=== PATIENT | female | born 1965 | race Caucasian/White ===

== ENCOUNTER 2021-04-18 17:52 | Inpatient (IN) | payer BC, SELFPAY ==
--- NOTE | ~2021-04-18 | MR_ITS ---
EXAMINATION: MR BRAIN WITHOUT AND WITH CONTRAST CLINICAL INFORMATION: Loss of consciousness. Seizure-like activity. COMPARISON: CT scan of the head 04/18/2021. TECHNIQUE: Multiplanar MR imaging of the brain was performed without and with contrast. A total of 8.5 mL Gadavist was less of this examination. FINDINGS: Dedicated coronal oblique imaging through the temporal lobes reveals symmetric size, signal intensity, and morphological appearance of the hippocampal formations. Postcontrast images reveal no abnormal mass or enhancement within the intracranial compartment. No intracranial mass effect or midline shift. Lateral and third ventricles are normal. No hydrocephalus. Midline structures including the cervicomedullary junction are normal. No acute bone marrow signal changes. There is no acute territorial infarct. No pathological magnetic susceptibility artifact. Intracranial vascular flow voids are grossly maintained. There is no mastoid middle ear effusion. Trivial mucosal thickening within ethmoid air cells. Globes and orbits are symmetric. MR/MR head/brain wo/w con IMPRESSION: Unremarkable brain MRI. No evidence of acute territorial infarct or hemorrhage. No abnormal intracranial mass or enhancement.
--- NOTE | ~2021-04-18 | XR_ITS ---
EXAMINATION: XR CHEST CLINICAL INFORMATION: Dizziness, syncope COMPARISON: None TECHNIQUE: Frontal view of the chest was obtained. FINDINGS: No significant abnormality is noted involving the heart, lungs, mediastinum, bony thorax or soft tissues. XR/XR chest 1V IMPRESSION: Unremarkable examination.
--- NOTE | ~2021-04-18 | CT_ITS ---
EXAMINATION: CT HEAD WITHOUT CONTRAST CLINICAL INFORMATION: Seizure and headache COMPARISON: None TECHNIQUE: Contiguous axial imaging was performed from the skull base to vertex without intravenous administration of contrast. This CT examination was performed using dose optimization techniques as appropriate, variously including the following: *Automated exposure control *Adjustment of mA and/or kV according to patient size (this includes techniques or standardized protocols for targeted exams where dose is matched to indication/reason for exam; i.e. extremities or head) *Use of iterative reconstruction technique DLP: 616 mGy-cm FINDINGS: There is no evidence of acute intracranial hemorrhage or territorial infarction. No abnormal mass effect or midline shift is seen. [place] to white matter differentiation is well preserved. No extra-axial fluid collections are identified. The ventricles are normal in size. There is no abnormal attenuation within the brain parenchyma. The osseous structures and soft tissues are normal. The mastoid air cells and visualized portions of the paranasal sinuses are well aerated. There is cerumen in the bilateral external auditory canals. CT/CT head/brain wo con IMPRESSION: No acute intracranial pathology.
[2021-04-18 18:41] VITALS: BP 124/85; PULSE 89; RESP 18; TEMP 36.9; O2SAT 98; BMI 32.1
--- NOTE | 2021-04-18 18:48 | ECG_ITS ---
Test Reason : chest pain Blood Pressure : / mmHG Vent. Rate : 076 BPM Atrial Rate : 076 BPM P-R Int : 174 ms QRS Dur : 084 ms QT Int : 386 ms P-R-T Axes : 039 -25 022 degrees QTc Int : 434 ms Normal sinus rhythm Left axis deviation Otherwise normal ECG No previous ECGs available Referred By: Generic ED Physician Electronically Signed By:JERRY COLON MD
--- NOTE | 2021-04-18 19:01 | ED_ITS ---
HPI - Syncope General Chief Complaint: Dizziness Stated Complaint: dizziness Time Seen by Provider: 04/18/21 19:00 Source: patient and family Mode of arrival: ambulatory Limitations: no limitations History of Present Illness HPI narrative: 55-year-old female with history of HTN, long time active smoker who presents to the ER for evaluation of recurrent dizziness and passing out. She reports yesterday she was at work when she all of the sudden felt hot, lightheaded, dizzy and started seeing spots. She felt like she was going to pass out. She sat down and her coworkers report she lost consciousness, both of her arms were shaking and she was incontinent of urine. She was unconscious for about 2 minutes per witnesses. When she came to she was unsure how long she was passed out for. She had headache and fatigue afterward with extreme nausea. EMS arrived and patient declined transport to the ER becuase she was slowly starting to feel better. She woke up this morning and still felt fatigued with a headache. She also reports a similar episode back in October - she reports being on an airplane taxing to the gate when she had acute onset of dizziness, lightheadedness, and feeling hot. She saw spots and passed out. She was incontinent of urine and diaphoretic. Unknown if she had shaking or convulsions at that time. She vomited when she woke up. She never saw her PCP or any doctor for evaluation after this episode. MD complaint: loss of consciousness and felt faint Onset (ago): day(s) (1) Duration of episode: 2 -: minutes(s) Description of event: post-event confusion, focal shaking and incontinence Prodromal symptoms: vision changes, lightheaded, heart racing, diaphoresis and nausea/vomiting Witnessed: Yes - by Bystander Context: at rest Injuries sustained associated with event: none Current symptoms: headache History: previous syncopal episode Treatments prior to arrival: none Related Data Allergies Allergy/AdvReac Type Severity Reaction Status Date / Time No Known Allergies Allergy Verified 04/18/21 18:47 Review of Systems Review of Systems: Constitutional: No Fever, No Chills ENT/Mouth: No sore throat, No Rhinorrhea, No Swallowing Difficulty Eyes: No Eye Pain, No Swelling, No Redness Cardiovascular: No Chest Pain, No SOB, No Orthopnea, No Edema Respiratory: + Cough, No Sputum, No Wheezing, No dyspnea Gastrointestinal: +Nausea, No Vomiting, No Diarrhea, No abdominal Pain Genitourinary: No Dysuria, No Urinary Frequency, No Hematuria Musculoskeletal: No joint pain, No Myalgias Skin: No Skin Lesions, No rash Neuro: No Weakness, + Numbness (transient right arm numbness yesterday, now resolved), + Dizziness, + Headache Psych: No Anxiety/Panic, No Depression Heme/Lymph: No Bruising, No Lymphadenopathy PMFSH Past Medical History Medical History (Updated 04/18/21 @ 20:33 by IVETTE Kessler) COPD (chronic obstructive pulmonary disease) Social History Social History Advance Directives: No Advance Directives Information Provided: Yes Patient : No Physical Exam Vital Signs: Vital Signs: Last Vital Signs Temp 98.5 F 04/18/21 18:41 Pulse 82 04/18/21 19:20 Resp 18 04/18/21 18:41 BP 119/85 04/18/21 19:20 Pulse Ox 98 04/18/21 18:41 Body Mass Index 32.1 Appearance: Alert. Oriented X3. No acute distress. Eyes: Pupils equal, round and reactive to light. ENT: Pharynx normal. Neck: Normal inspection. Neck supple. CVS: Normal heart rate and rhythm. Pulses normal. Respiratory: No respiratory distress. Breath sounds normal. Abdomen: Soft and nontender. +BS x4 Skin: Skin warm and dry. Normal skin color. Normal skin turgor. No rashes. Extremities: No lower extremity edema. Neuro: Oriented X 3. No motor deficit. No sensory deficit. Nonfocal. Ambulatory Course Course Course Narrative: 55 y/o female presenting with c/o dizziness and syncopal episode that happened yesterday with what sounds like new onset seizure activity. She had arm shaking and urinary incontinence with a similar episode 5 months ago. No history of seizure disorder. Denies ETOH or drug use. Will get labs, Utox, ETOH level and CT head for further evaluation. Reevaluation(s) Reevaluation #1: Labs and imaging are unremarkable. Will plan to admit for probable new onset seizures. Will give a dose of keppra now until she can be seen by Neurology for further evaluation. Patient agrees with plan. MDM - Syncope Medical Records Attestation: I reviewed the patient's medical records. Lab Data Attestation: I reviewed the patient's lab results. Result diagrams: 04/18/21 19:09 04/18/21 19:09 Labs: Lab Results 04/18/21 04/18/21 04/18/21 Range/Units 19:09 19:09 19:09 WBC 10.3 (4.8-10.8) X10*3/uL RBC 4.90 (4.20-5.50) X10*6/uL Hgb 14.7 (12.0-16.0) g/dl Hct 42.5 (37-47) % MCV 86.7 (80-98) fL MCH 30.0 (27.0-33.0) pg MCHC 34.6 (31.0-35.0) g/dl RDW 13.6 (11.0-16.0) % Plt Count 295 (160-400) X10*3/uL MPV 9.8 (9.4-12.3) fL Immature Gran % (Auto) 0.3 (0.0-0.4) % Neut % (Auto) 56.3 (45-73) % Lymph % (Auto) 32.6 (20-40) % [place] % (Auto) 6.6 (2-11) % Eos % (Auto) 3.1 (0-4) % Baso % (Auto) 1.1 (0-2) % Lymph # (Auto) 3.4 (1.2-4.9) X10*3/uL [place] # (Auto) 0.7 (0.1-1.2) X10*3/uL Eos # (Auto) 0.3 (0.0-0.4) X10*3/uL Baso # (Auto) 0.1 (0.0-0.2) X10*3/uL Abs Immat Gran (auto) 0.03 (0.00-0.03) X10*3/uL Absolute Neuts (auto) 5.8 (2.0-8.3) X10*3/uL Absolute Nucleated RBC 0.000 (0.0-0.012) X10*3/uL Nucleated RBC % (auto) 0.0 (0.0-0.2) /100WBC D-Dimer NG/ML Sodium 141 (135-145) mmol/L Potassium 4.3 (3.3-5.1) mmol/L Chloride 108 (96-108) mmol/L Carbon Dioxide 23 (22-29) mmol/L Anion Gap 14 (12-20) BUN 16 (9-16) mg/dL Creatinine 0.69 (0.5-1.4) mg/dL Estim Creat Clear Calc 95.6 Estimated GFR > 60 Random Glucose 93 (60-115) mg/dL Calcium 9.7 (8.4-10.2) mg/dL Troponin I High Sens < 3.5 (<3.5-17.0) ng/L Urine Color Urine Appearance Urine pH (5.0-8.0) Ur Specific [place] (1.005-1.025) Urine Protein (NEG-TRACE) MG/DL Urine Glucose (UA) (NEG) MG/DL Urine Ketones (NEG) MG/DL Urine Blood (NEG) Urine Nitrite (NEG) Ur Leukocyte Esterase (NEG) COVID-19 (TARIQ) (Negative) COVID-19 Clin Com 04/18/21 04/18/21 04/18/21 Range/Units 19:09 19:09 19:09 WBC (4.8-10.8) X10*3/uL RBC (4.20-5.50) X10*6/uL Hgb (12.0-16.0) g/dl Hct (37-47) % MCV (80-98) fL MCH (27.0-33.0) pg MCHC (31.0-35.0) g/dl RDW (11.0-16.0) % Plt Count (160-400) X10*3/uL MPV (9.4-12.3) fL Immature Gran % (Auto) (0.0-0.4) % Neut % (Auto) (45-73) % Lymph % (Auto) (20-40) % [place] % (Auto) (2-11) % Eos % (Auto) (0-4) % Baso % (Auto) (0-2) % Lymph # (Auto) (1.2-4.9) X10*3/uL [place] # (Auto) (0.1-1.2) X10*3/uL Eos # (Auto) (0.0-0.4) X10*3/uL Baso # (Auto) (0.0-0.2) X10*3/uL Abs Immat Gran (auto) (0.00-0.03) X10*3/uL Absolute Neuts (auto) (2.0-8.3) X10*3/uL Absolute Nucleated RBC (0.0-0.012) X10*3/uL Nucleated RBC % (auto) (0.0-0.2) /100WBC D-Dimer < 200 NG/ML Sodium (135-145) mmol/L Potassium (3.3-5.1) mmol/L Chloride (96-108) mmol/L Carbon Dioxide (22-29) mmol/L Anion Gap (12-20) BUN (9-16) mg/dL Creatinine (0.5-1.4) mg/dL Estim Creat Clear Calc Estimated GFR Random Glucose (60-115) mg/dL Calcium (8.4-10.2) mg/dL Troponin I High Sens (<3.5-17.0) ng/L Urine Color STRAW Urine Appearance CLEAR Urine pH 6.5 (5.0-8.0) Ur Specific [place] <= 1.005 (1.005-1.025) Urine Protein NEG (NEG-TRACE) MG/DL Urine Glucose (UA) NEG (NEG) MG/DL Urine Ketones NEG (NEG) MG/DL Urine Blood NEG (NEG) Urine Nitrite NEG (NEG) Ur Leukocyte Esterase NEG (NEG) COVID-19 (TARIQ) Negative (Negative) COVID-19 Clin Com See Note ECG Data Attestation: I personally reviewed and interpreted this ECG as follows: ECG interpretation date: 04/18/21 Prior ECG tracings: available for review Interpretation: Normal sinus rhythm, heart rate 76 beats per minute, MT interval normal 174 MS, T-wave inversions in lead 3, V1. No ST segment elevations or depressions. Discharge Plan Discharge Clinical Impression: New onset seizure Patient Disposition: Admitted As Inpatient
[2021-04-18 19:16] LABS: MANUAL DIFF FLAG NO
[2021-04-18 19:18] VITALS: BP 112/73; PULSE 67
[2021-04-18 19:18] LABS: Basophils Absolute Auto 0.1 X10*3/uL (0.0-0.2); Basophils Percent Auto 1.1 % (0-2); Eosinophils Absolute Auto 0.3 X10*3/uL (0.0-0.4); Eosinophils Percent Auto 3.1 % (0-4); Hematocrit 42.5 % (37-47); Hemoglobin 14.7 g/dl (12.0-16.0); Imm Gran Abs Auto 0.03 X10*3/uL (0.00-0.03); Imm Gran Pct Auto 0.3 % (0.0-0.4); Lymphocytes Absolute Auto 3.4 X10*3/uL (1.2-4.9); Lymphocytes Percent Auto 32.6 % (20-40); Mean Corpuscular HGB Conc 34.6 g/dl (31.0-35.0); Mean Corpuscular Volume 86.7 fL (80-98); Mean Platelet Volume 9.8 fL (9.4-12.3); Monocytes Absolute Auto 0.7 X10*3/uL (0.1-1.2); Monocytes Percent Auto 6.6 % (2-11); Neutrophils Absolute Auto 5.8 X10*3/uL (2.0-8.3); Neutrophils Percent Auto 56.3 % (45-73); Platelet Count 295 X10*3/uL (160-400); Red Cell Distribution Width 13.6 % (11.0-16.0); White Blood Count 10.3 X10*3/uL (4.8-10.8)
[2021-04-18 19:19] VITALS: BP 116/80; PULSE 80
[2021-04-18 19:19] LABS: Appearance Urine CLEAR; Color Urine STRAW; Glucose Urine UA NEG (NEG); Leukocyte Esterase Urine NEG (NEG); Nitrite Urine NEG (NEG); PH 6.5 (5.0-8.0); Specific Gravity - Urine <= 1.005 (1.005-1.025); Urine Blood NEG (NEG); Urine Ketones NEG (NEG); Urine Protein NEG (NEG-TRACE)
[2021-04-18 19:20] VITALS: BP 119/85; PULSE 82
[2021-04-18 19:30] LABS: Anion Gap 14 (12-20); Blood Urea Nitrogen 16 mg/dL (9-16); Calcium 9.7 mg/dL (8.4-10.2); Carbon Dioxide 23 mmol/L (22-29); Chloride 108 mmol/L (96-108); Creatinine Clr Calc Pharmacy 95.6; Estimated Glomerular Filt Rate > 60; Glucose Random 93 mg/dL (60-115); Potassium 4.3 mmol/L (3.3-5.1); Sodium 141 mmol/L (135-145)
[2021-04-18 19:32] LABS: D Dimer < 200 NG/ML
[2021-04-18 19:34] LABS: COVID-19 Test Negative (Negative)
[2021-04-18 19:35] LABS: Troponin-I High Sensitivity < 3.5 ng/L (<3.5-17.0)
[2021-04-18] MEDS: levETIRAcetam in NaCl (iso-os) 1,000 MG/100 ML PIGGYBACK 400 MG IV (20:44)
[2021-04-18] MEDS: Nicotine 21 MG PATCH.TD24 TRANSDERMA (20:46)
--- NOTE | 2021-04-18 20:56 | PHA.MEDREC ---
Pharmacy Consult ? Medication Reconciliation Pharmacy has completed the medication reconciliation. I spoke to the patient who states she takes amlodipine but didn't know the dose. She also states she takes several vitamins that she couldn't tell me the dosage on. She states she takes Zinc, Vitamin C, Vitamin D3, B complex, and Magnesium. I was not able to confirm any of the doses because she didn't have any external pharmacy fill history. Rossana Sainz, PharmD [phone]
[2021-04-18 21:44] VITALS: BP 113/82; PULSE 74; RESP 20; TEMP 36.6; O2SAT 96
--- NOTE | 2021-04-18 23:11 | PM.IMHP ---
History of Present Illness Date of Service: 04/18/21 Chief Complaint: LOC 55-year-old female with past medical history of COPD, hypertension and GERD who presents to the hospital with complaints of syncopal episode. Patient reports that back in October she had an episode where she was traveling, on exiting the plane, patient felt hot, sweaty, clammy, and felt like she was going to pass out, she had nausea vomited, loss consciousness and had loss of bladder control. 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 Her coworkers noticed her has shaking as well as her head moving in seizure-like activity. Patient spontaneously recovered, she reports that she did not feel confused although she did not have any recollection of the loss of consciousness and felt that she did not even pass out. She spontaneously recovered and therefore did not seek any medical attention. She woke up this morning feeling dizzy, weak and therefore decided to come to the hospital for further evaluation. She denies experiencing any chest pain, palpitations, no shortness of breath, no change in vision, no abdominal pain nausea or vomiting, diarrhea constipation, no urinary symptoms and no lower extremity edema. Patient reports history of seizure in mother Her orthostatic vital signs negative negative Vitals on within Normal range, labs unremarkable Head CT negative, chest x-ray negative Review of Systems Review of Systems: Yes all other systems are reviewed and are negative [facility] Medical History (Updated 04/19/21 @ 06:14 by Josselin Johnson MD) COPD (chronic obstructive pulmonary disease) GERD (gastroesophageal reflux disease) Hypertension Pertinent family history: Seizure in mother Surgical History (Updated 04/19/21 @ 06:14 by Josselin Johnson MD) No pertinent past surgical history Social History Household Members: None Housing: House Do you presently have visiting nurse or other home services: No Patient Tobacco Use Status: Current everyday Tobacco user Tobacco use type: Cigarette Smoked in Last 30 Days: Yes Patient Interested in Nicotine Replacement: Yes Second Hand Smoke Exposure: No Use of substances other than those prescribed or required for medical reasons: No Have you been hit, kicked, punched, or otherwise hurt by someone within the past year? If so, by whom?: No Do you feel safe in your current relationship?: No Is there a partner from a previous relationship who is making you feel unsafe now?: No Are you made to feel afraid or neglected: No Advance Directives: No Advance Directives Information Provided: Yes Do you have thoughts of harming others: None Do you have a plan to hurt others: No Plan Recently lost weight without trying: No Eating poorly because of decreased appetite: No Nutrition Risks: No Nutritional Risk Patient : No : No Poor oral hygiene: No Meds Allergies Allergy/AdvReac Type Severity Reaction Status Date / Time No Known Allergies Allergy Verified 04/18/21 18:47 Active Medications: Current Medications Pharmacy Consult (Consult Rx Perform Med Rec) 1 each MISCELLANE ONCE PRN PRN Reason: Consult order Home Medications Medication Instructions Recorded Confirmed Last Taken Type albuterol sulfate 90 mcg/actuation 2 puff INHALATION Q4H PRN 04/18/21 04/18/21 Unknown History aerosol inhaler amlodipine 5 mg tablet mg PO DAILY 04/18/21 Unknown History ascorbic acid (vitamin C) 2,000 mg 2,000 mg PO DAILY 04/18/21 04/18/21 Unknown History tablet,extended release cholecalciferol (vitamin D3) 50 50 mcg PO DAILY 04/18/21 04/18/21 Unknown History mcg (2,000 unit) capsule (Vitamin D3) magnesium 250 mg tablet 250 mg PO DAILY 04/18/21 04/18/21 Unknown History pantoprazole 40 mg tablet,delayed 1 tab PO DAILY 04/18/21 04/18/21 Unknown History release vitamin B complex 1 tab PO DAILY 04/18/21 04/18/21 Unknown History zinc 100 mg tablet 220 mg PO DAILY 04/18/21 04/18/21 Unknown History Physical Exam Vital Signs and Narrative: Vital Signs: Last Vital Signs Temp 97.9 F 04/18/21 21:44 Pulse 74 04/18/21 21:44 Resp 20 04/18/21 21:44 BP 113/82 04/18/21 21:44 Pulse Ox 96 04/18/21 21:44 Body Mass Index 32.1 Const: General: cooperative and no acute distress Orientation/consciousness: patient oriented x3 Eyes: General: appearance normal, both eyes and all related structures Pupils: Equal, round and reactive pupils present Resp: Effort & Inspection: normal respiratory effort and able to speak in complete sentences Auscultation: clear to auscultation bilaterally Cardio: Rate: regular rate Rhythm: regular rhythm GI: Palpation (GI): Soft to palpation Auscultation: normal bowel sounds Skin: General skin exam: no rashes or lesions noted Neuro: General: patient oriented x3 Cranial nerves: Yes Equal, round and reactive pupils present Cognition (Neuro): normal cognition Extrem: General: Yes normal to inspection and Yes no pedal edema Results Labs CBC and Chem 7: 04/18/21 19:09 04/18/21 19:09 Labs: Laboratory Results - last 24 hr 04/18/21 04/18/21 04/18/21 19:09 19:09 19:09 MCV 86.7 MCH 30.0 MCHC 34.6 RDW 13.6 Plt Count 295 MPV 9.8 Immature Gran % (Auto) 0.3 Neut % (Auto) 56.3 Lymph % (Auto) 32.6 [place] % (Auto) 6.6 Eos % (Auto) 3.1 Baso % (Auto) 1.1 Lymph # (Auto) 3.4 [place] # (Auto) 0.7 Eos # (Auto) 0.3 Baso # (Auto) 0.1 Abs Immat Gran (auto) 0.03 Absolute Neuts (auto) 5.8 Absolute Nucleated RBC 0.000 Nucleated RBC % (auto) 0.0 D-Dimer Anion Gap 14 Estim Creat Clear Calc 95.6 Estimated GFR > 60 Random Glucose 93 Calcium 9.7 Troponin I High Sens < 3.5 Urine Color Urine Appearance Urine pH Ur Specific [place] Urine Protein Urine Glucose (UA) Urine Ketones Urine Blood Urine Nitrite Ur Leukocyte Esterase COVID-19 (TARIQ) COVID-19 Clin Com 04/18/21 04/18/21 04/18/21 19:09 19:09 19:09 MCV MCH MCHC RDW Plt Count MPV Immature Gran % (Auto) Neut % (Auto) Lymph % (Auto) [place] % (Auto) Eos % (Auto) Baso % (Auto) Lymph # (Auto) [place] # (Auto) Eos # (Auto) Baso # (Auto) Abs Immat Gran (auto) Absolute Neuts (auto) Absolute Nucleated RBC Nucleated RBC % (auto) D-Dimer < 200 Anion Gap Estim Creat Clear Calc Estimated GFR Random Glucose Calcium Troponin I High Sens Urine Color STRAW Urine Appearance CLEAR Urine pH 6.5 Ur Specific [place] <= 1.005 Urine Protein NEG Urine Glucose (UA) NEG Urine Ketones NEG Urine Blood NEG Urine Nitrite NEG Ur Leukocyte Esterase NEG COVID-19 (TARIQ) Negative COVID-19 Clin Com See Note Imaging Radiologist's Impressions: Impressions Chest X-Ray 04/18/21 18:48 IMPRESSION: Unremarkable examination. Head CT 04/18/21 19:37 IMPRESSION: No acute intracranial pathology. Assessment and Plan (1) Loss of consciousness: Status: Acute 55-year-old female with past medical history of COPD and hypertension who presents to the hospital with complaints of loss of consciousness concerning for seizure # loss of consciousness - seizure versus TIA versus vasovagal syncope - patient has evidence of all 3 - less likely to be cardiogenic as she has pre draw most symptoms - at this time will obtain MRI, EEG, neurology consult - admit to telemetry # hypertension - stable - hold amlodipine as patient's blood pressure on the lower end # COPD - controlled - continue home inhaler # history of GERD - continue PPI DVT prophylaxis: Lovenox Quality Stroke Does the patient have a stroke diagnosis?: No VTE Prior VTE?: No VTE Risk Level:: Medical - moderate - high VTE Device Contraindication: Treatment Not Indicated VTE Drug Contraindication: N/A - Med Ordered
--- NOTE | 2021-04-19 00:22 | PC.NURSE ---
nurse to nurse report given to Ayala PAYNE
[2021-04-19 00:46] VITALS: BP 105/70; PULSE 70; RESP 18; TEMP 36.3; O2SAT 95
[2021-04-19] MEDS: 0.9 % Sodium Chloride Flush 3 ML SYRINGE IVFLUSH ×2 (01:15→12:14)
[2021-04-19 02:31] VITALS: BMI 32.1
[2021-04-19 04:00] VITALS: BP 105/59; RESP 18; TEMP 36.3; O2SAT 99
[2021-04-19] MEDS: Omeprazole 20 MG CAPSULE.DR PO (06:30)
[2021-04-19 07:02] LABS: MANUAL DIFF FLAG NO
[2021-04-19 07:13] VITALS: BP 105/58; PULSE 68; RESP 18; TEMP 36.6; O2SAT 96
[2021-04-19 07:22] LABS: Anion Gap 11 (12-20); Blood Urea Nitrogen 16 mg/dL (9-16); Calcium 9.4 mg/dL (8.4-10.2); Carbon Dioxide 24 mmol/L (22-29); Chloride 106 mmol/L (96-108); Creatinine Clr Calc Pharmacy 95.6; Estimated Glomerular Filt Rate > 60; Glucose Random 100 mg/dL (60-115); Potassium 4.4 mmol/L (3.3-5.1); Sodium 137 mmol/L (135-145)
[2021-04-19 07:31] LABS: Basophils Absolute Auto 0.1 X10*3/uL (0.0-0.2); Basophils Percent Auto 0.8 % (0-2); Eosinophils Absolute Auto 0.3 X10*3/uL (0.0-0.4); Eosinophils Percent Auto 3.6 % (0-4); Hematocrit 41.8 % (37-47); Imm Gran Abs Auto 0.03 X10*3/uL (0.00-0.03); Imm Gran Pct Auto 0.3 % (0.0-0.4); Lymphocytes Absolute Auto 2.7 X10*3/uL (1.2-4.9); Lymphocytes Percent Auto 27.8 % (20-40); Mean Corpuscular HGB Conc 33.5 g/dl (31.0-35.0); Mean Corpuscular Hemoglobin 29.2 pg (27.0-33.0); Mean Corpuscular Volume 87.3 fL (80-98); Mean Platelet Volume 10.1 fL (9.4-12.3); Monocytes Absolute Auto 0.7 X10*3/uL (0.1-1.2); Neutrophils Absolute Auto 5.8 X10*3/uL (2.0-8.3); Neutrophils Percent Auto 60.5 % (45-73); Platelet Count 267 X10*3/uL (160-400); Red Blood Count 4.79 X10*6/uL (4.20-5.50); Red Cell Distribution Width 13.7 % (11.0-16.0); White Blood Count 9.5 X10*3/uL (4.8-10.8)
--- NOTE | 2021-04-19 11:46 | MHC.CM.PN ---
CM ATTEMPTED TO SEE PT WHO WAS OOR CM TO REVISIT
[2021-04-19] MEDS: Enoxaparin Sodium 40 MG/0.4 ML SYRINGE SUBCUT (12:15)
--- NOTE | 2021-04-19 12:46 | P.DS_ITS ---
DS: Providers Provider Date of Service: 04/19/21 Date of admission: 04/18/21 23:08 Primary care physician: Jose Maria Mederos Consults: 04/18/21 23:11 Consult to Neurology Routine Consulting Provider: [facility] Reason for consultation: LOC, seizure vs stroke Has provider been notified: No DS: Diagnosis Discharge Diagnosis (1) Loss of consciousness: Status: Acute (2) New onset seizure: Status: Acute DS: Summary Hospital Course Hospital Course: Chief Complaint: LOC 55-year-old female with past medical history of COPD, hypertension and GERD who presents to the hospital with complaints of syncopal episode.? Patient reports that back in October she had an episode where she was traveling, on exiting the plane, patient felt hot, sweaty, clammy, and felt like she was going to pass out, she had nausea vomited, loss consciousness and had loss of bladder control.? 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 Her coworkers noticed her has shaking as well as her head moving in seizure-like activity.? Patient spontaneously recovered, she reports that she did not feel confused although she did not have any recollection of the loss of consciousness and felt that she did not even pass out.? She spontaneously recovered and therefore did not seek any medical attention. She woke up this morning feeling dizzy, weak and therefore decided to come to the hospital for further evaluation. She denies experiencing any chest pain, palpitations, no shortness of breath, no change in vision, no abdominal pain nausea or vomiting, diarrhea constipation, no urinary symptoms and no lower extremity edema. Patient reports history of seizure in mother Her orthostatic vital signs negative negative Hospital course: Patient was observed overnight and did not experience any further episode of seizure, she descriabed another episode earlier this year which that was similar to this event. She was evaluated by Dr. Gavin from neurology and recommends Outpatient EEG, 24 hour ambulatory EEG, 7 day cardiac cath rn, outpatient echocardiogram and Cardiology consultation--these will be arrange on outaptient basis and the importance of not driving was communicated directectly with her by myself and with nursing and she voiced understanding. Time Spent with Patient Time attestation: Total time spent providing and/or coordinating discharge services: Discharge coordination time: Greater than 30 minutes Quality: Stroke Does the patient have a stroke diagnosis?: No Physical Exam Vital Signs: Vital Signs: Last Vital Signs Temp 98 F 04/19/21 07:13 Pulse 68 04/19/21 07:13 Resp 18 04/19/21 07:13 BP 105/58 L 04/19/21 07:13 Pulse Ox 96 04/19/21 07:13 Body Mass Index 32.1 Constitutional: Alert, in no distress, overweight. Mental Status: Oriented to person, place and time. Eyes: Pupils are equal, round and reactive to light. Ear, Nose and Throat: Oropharynx clear, mucous membranes moist. Respiratory: Clear to auscultation. No wheezing, rales or rhonchi. Cardiovascular: S1 S2 regular. No murmurs, rubs or gallops. Gastrointestinal: Abdomen soft, non-tender, non-distended. Normal bowel sounds.? Neurologic: Cranial nerves II-XII grossly intact. No focal neurological deficits. Moves all extremities spontaneously.? Skin: No rashes or lesions.? Musculoskeletal: No cyanosis or clubbing. Psychiatric: Normal mood and affect? DS: Data Data Completed and Pending Labs on day of discharge: Laboratory Results - last 24 hr 04/18/21 04/18/21 04/18/21 19:09 19:09 19:09 WBC 10.3 RBC 4.90 Hgb 14.7 Hct 42.5 MCV 86.7 MCH 30.0 MCHC 34.6 RDW 13.6 Plt Count 295 MPV 9.8 Immature Gran % (Auto) 0.3 Neut % (Auto) 56.3 Lymph % (Auto) 32.6 Kidder % (Auto) 6.6 Eos % (Auto) 3.1 Baso % (Auto) 1.1 Lymph # (Auto) 3.4 Kidder # (Auto) 0.7 Eos # (Auto) 0.3 Baso # (Auto) 0.1 Abs Immat Gran (auto) 0.03 Absolute Neuts (auto) 5.8 Absolute Nucleated RBC 0.000 Nucleated RBC % (auto) 0.0 D-Dimer Sodium 141 Potassium 4.3 Chloride 108 Carbon Dioxide 23 Anion Gap 14 BUN 16 Creatinine 0.69 Estim Creat Clear Calc 95.6 Estimated GFR > 60 Random Glucose 93 Calcium 9.7 Troponin I High Sens < 3.5 Urine Color Urine Appearance Urine pH Ur Specific [place] Urine Protein Urine Glucose (UA) Urine Ketones Urine Blood Urine Nitrite Ur Leukocyte Esterase COVID-19 (TARIQ) COVID-19 Clin Com 04/18/21 04/18/21 04/18/21 19:09 19:09 19:09 WBC RBC Hgb Hct MCV MCH MCHC RDW Plt Count MPV Immature Gran % (Auto) Neut % (Auto) Lymph % (Auto) Kidder % (Auto) Eos % (Auto) Baso % (Auto) Lymph # (Auto) Kidder # (Auto) Eos # (Auto) Baso # (Auto) Abs Immat Gran (auto) Absolute Neuts (auto) Absolute Nucleated RBC Nucleated RBC % (auto) D-Dimer < 200 Sodium Potassium Chloride Carbon Dioxide Anion Gap BUN Creatinine Estim Creat Clear Calc Estimated GFR Random Glucose Calcium Troponin I High Sens Urine Color STRAW Urine Appearance CLEAR Urine pH 6.5 Ur Specific [place] <= 1.005 Urine Protein NEG Urine Glucose (UA) NEG Urine Ketones NEG Urine Blood NEG Urine Nitrite NEG Ur Leukocyte Esterase NEG COVID-19 (TARIQ) Negative COVID-19 Clin Com See Note 04/19/21 04/19/21 06:28 06:28 WBC 9.5 RBC 4.79 Hgb 14.0 Hct 41.8 MCV 87.3 MCH 29.2 MCHC 33.5 RDW 13.7 Plt Count 267 MPV 10.1 Immature Gran % (Auto) 0.3 Neut % (Auto) 60.5 Lymph % (Auto) 27.8 Kidder % (Auto) 7.0 Eos % (Auto) 3.6 Baso % (Auto) 0.8 Lymph # (Auto) 2.7 Kidder # (Auto) 0.7 Eos # (Auto) 0.3 Baso # (Auto) 0.1 Abs Immat Gran (auto) 0.03 Absolute Neuts (auto) 5.8 Absolute Nucleated RBC 0.000 Nucleated RBC % (auto) 0.0 D-Dimer Sodium 137 Potassium 4.4 Chloride 106 Carbon Dioxide 24 Anion Gap 11 L BUN 16 Creatinine 0.69 Estim Creat Clear Calc 95.6 Estimated GFR > 60 Random Glucose 100 Calcium 9.4 Troponin I High Sens Urine Color Urine Appearance Urine pH Ur Specific [place] Urine Protein Urine Glucose (UA) Urine Ketones Urine Blood Urine Nitrite Ur Leukocyte Esterase COVID-19 (TARIQ) COVID-19 Clin Com Discharge Plan Discharge Anticipated Discharge Date/Time: 04/19/21 16:44 Patient Disposition: Home, Self-Care Discharge Diagnosis: Seizure Referrals: Jose Maria Mederos [Primary Care Provider] - 1 Week Lucie Butterfield MD [Physician] - 2 Weeks Discharge Medications: Continued zinc 100 mg Tablet 220 mg PO DAILY RF: 0 vitamin B complex Tablet Extended Release 1 tab PO DAILY RF: 0 ascorbic acid (vitamin C) 2,000 mg Tablet Extended Release 2,000 mg PO DAILY RF: 0 pantoprazole 40 mg tablet,delayed release (DR/EC) 1 tab PO DAILY RF: 0 magnesium 250 mg Tablet 250 mg PO DAILY RF: 0 albuterol sulfate 90 mcg/actuation HFA aerosol inhaler 2 puff inhalation Q4H PRN (Reason: Shortness Of Breath) RF: 0 cholecalciferol (vitamin D3) [Vitamin D3] 50 mcg (2,000 unit) Capsule 50 mcg PO DAILY RF: 0 amlodipine 5 mg Tablet PO DAILY RF: 0 Diet: advance to usual diet Activity on Discharge: As tolerated Stand Alone Forms: Patient Portal Discharge page Other Ambulatory Orders: EEG ambulatory (Routine) Timeframe: 1 Day Facility: [facility] - Location: Radiology Ordered By: Cm Schmidt [place] echo transthoracic complete (Routine) Timeframe: 1 Week Facility: [facility] - Location: Cardiology Ordered By: Cm Schmidt Care Plan Goals: prevent seizures Health Concerns: seizures Plan of Treatment: You will need EEG and EChocardiogram, 7 day cardiac moniyot Per state low you are prohibited to drive for at least 6 months seizure or loss of consciouness free. You will also need to follow up with / [facility] office will call you about follow up to have cardiac monitoring done. Assessment: as above
--- NOTE | 2021-04-19 14:00 | MHC.CM.PN ---
CM MET WITH PT WHO REPORTS SHE LIVES AT HOME WITH HER AND SON PT REPORTS BEING FULLY INDEPENDENT WITH ALL ADLS PT HAS NO SERVICES AND NO DME PT REPORTS SHE HAS A HCP COMPLETED NAMING HER HER AGENT PT CONFIRMS HER PCP IS KARLA YUSUF CURRENT DC PLAN IS HOME WITH NO SERVICES PT WILL ARRANGE TRANSPORT
[2021-04-19] MEDS: Nicotine 14 MG PATCH.TD24 TRANSDERMA (15:09)
--- NOTE | 2021-04-19 16:30 | PM.NEUROCN ---
History of Present Illness Data of Consult Service Date: 04/19/21 Primary Care Provider: Jose Maria FARIA Reason for consult: Syncopal episode with urinary incontinence This is a 55-year-old woman with a history of mild COPD and hypertension for which she takes amlodipine. She is admitted after a syncopal episode at work around 930 in the morning. She had been feeling fine in the morning and had eaten half a bagel. She was doing some inventory at work and suddenly started to feel very hot sweaty diaphoretic and lightheaded. She sat down and continued to feel that way in about 5 minutes she had loss of consciousness witnessed by a co-worker which she became white and her face dropped she started trembling all over and had urinary incontinence. There was no tongue biting. She had loss of consciousness for 2 minutes and then came to was slightly confused before she recovered. She went back home and felt fine afterwards. She also had some degree of nausea. There was no chest pain or palpitation or shortness of breath. A similar episode also happened while she landed at [facility] in October from a trip and suddenly started to feel hot sweaty and lightheaded and then proceeded to have loss of consciousness vomiting and urinary incontinence. She did not seek medical attention at that time. Review of Systems Review of Systems: Constitutional: No Fever, No Chills ENT/Mouth: No sore throat, No Rhinorrhea, No Swallowing Difficulty Eyes: No Eye Pain, No Swelling, No Redness Cardiovascular: No Chest Pain, No SOB, No Orthopnea, No Edema Respiratory: + Cough, No Sputum, No Wheezing, No dyspnea Gastrointestinal: +Nausea, No Vomiting, No Diarrhea, No abdominal Pain Genitourinary: No Dysuria, No Urinary Frequency, No Hematuria Musculoskeletal: No joint pain, No Myalgias Skin: No Skin Lesions, No rash Neuro: No Weakness, + Numbness (transient right arm numbness yesterday, now resolved), + Dizziness, + Headache Psych: No Anxiety/Panic, No Depression Heme/Lymph: No Bruising, No Lymphadenopathy Yes all other systems are reviewed and are negative [facility] Past Medical History Medical History (Updated 04/19/21 @ 06:14 by Josselin Johnson MD) COPD (chronic obstructive pulmonary disease) GERD (gastroesophageal reflux disease) Hypertension Family History Pertinent family history: Seizure in mother Surgical History Surgical History (Updated 04/19/21 @ 06:14 by Josselin Johnson MD) No pertinent past surgical history Social History Social History Household Members: None Housing: House Do you presently have visiting nurse or other home services: No Patient Tobacco Use Status: Current everyday Tobacco user Tobacco use type: Cigarette Smoked in Last 30 Days: Yes Patient Interested in Nicotine Replacement: Yes Second Hand Smoke Exposure: No Use of substances other than those prescribed or required for medical reasons: No Have you been hit, kicked, punched, or otherwise hurt by someone within the past year? If so, by whom?: No Do you feel safe in your current relationship?: No Is there a partner from a previous relationship who is making you feel unsafe now?: No Are you made to feel afraid or neglected: No Advance Directives: No Advance Directives Information Provided: Yes Do you have thoughts of harming others: None Do you have a plan to hurt others: No Plan Recently lost weight without trying: No Eating poorly because of decreased appetite: No Nutrition Risks: No Nutritional Risk Patient : No : No Poor oral hygiene: No Current occupational status: unemployed Meds Allergies Allergy/AdvReac Type Severity Reaction Status Date / Time No Known Allergies Allergy Verified 04/18/21 18:47 Active Medications: Current Medications Acetaminophen (Acetaminophen 325 Mg Tablet) 650 mg PO Q6H PRN PRN Reason: Pain, Mild (Pain Scale 1-3) Albuterol Sulfate (Albuterol Sulfate 90 Mcg 8 Gm Inhaler) 2 puff INHALE Q4H PRN PRN Reason: Shortness Of Breath Ascorbic Acid (Ascorbic Acid 500 Mg Tablet) 2,000 mg PO DAILY [facility] Last Admin: 04/19/21 12:23 Dose: Not Given Documented by: Docusate Sodium (Docusate Sodium 100 Mg Capsule) 100 mg PO DAILY PRN PRN Reason: Constipation Enoxaparin Sodium (Enoxaparin Sodium 40 Mg/0.4 Ml Syringe) 40 mg SUBCUT Q24H [facility] Last Admin: 04/19/21 12:15 Dose: 40 mg Documented by: Levetiracetam (Levetiracetam 500 Mg Tablet) 500 mg PO BID [facility] Magnesium Oxide (Magnesium Oxide 400 Mg Tablet) 400 mg PO DAILY [facility] Last Admin: 04/19/21 12:24 Dose: Not Given Documented by: Multivitamins/Vitamin C (Multivitamin Tablet) 1 tab PO DAILY [facility] Last Admin: 04/19/21 12:24 Dose: Not Given Documented by: Nicotine (Nicotine 14 Mg Patch.Td24) 14 mg TRANSDERMA DAILY [facility] Last Admin: 04/19/21 15:09 Dose: 14 mg Documented by: Omeprazole (Omeprazole 20 Mg Capsule.) 20 mg PO DAILY@0630 [facility] Last Admin: 04/19/21 06:30 Dose: 20 mg Documented by: Ondansetron HCl (Ondansetron Hcl 4 Mg/2 Ml Vial) 4 mg IVPUSH Q8H PRN PRN Reason: Nausea and Vomiting Pharmacy Consult (Consult Rx Perform Med Rec) 1 each MISCELLANE ONCE PRN PRN Reason: Consult order Sodium Chloride (0.9 % Sodium Chloride Flush 3 Ml Syringe) 3 ml IVFLUSH QSHIFT [facility] Last Admin: 04/19/21 12:14 Dose: 3 ml Documented by: Vitamin D (Cholecalciferol (Vitamin D3) 25 Mcg Tablet) 50 mcg PO DAILY [facility] Last Admin: 04/19/21 12:24 Dose: Not Given Documented by: Zinc Sulfate (Zinc Sulfate 220 Mg Capsule) 220 mg PO DAILY [facility] Last Admin: 04/19/21 12:24 Dose: Not Given Documented by: Home Medications Medication Instructions Recorded Confirmed Last Taken Type albuterol sulfate 90 mcg/actuation 2 puff INHALATION Q4H PRN 04/18/21 04/18/21 Unknown History aerosol inhaler amlodipine 5 mg tablet mg PO DAILY 04/18/21 Unknown History ascorbic acid (vitamin C) 2,000 mg 2,000 mg PO DAILY 04/18/21 04/18/21 Unknown History tablet,extended release cholecalciferol (vitamin D3) 50 50 mcg PO DAILY 04/18/21 04/18/21 Unknown History mcg (2,000 unit) capsule (Vitamin D3) magnesium 250 mg tablet 250 mg PO DAILY 04/18/21 04/18/21 Unknown History pantoprazole 40 mg tablet,delayed 1 tab PO DAILY 04/18/21 04/18/21 Unknown History release vitamin B complex 1 tab PO DAILY 04/18/21 04/18/21 Unknown History zinc 100 mg tablet 220 mg PO DAILY 04/18/21 04/18/21 Unknown History Physical Exam Vital Signs: Vital Signs: Last Vital Signs Temp 98 F 04/19/21 07:13 Pulse 68 04/19/21 07:13 Resp 18 04/19/21 07:13 BP 105/58 L 04/19/21 07:13 Pulse Ox 96 04/19/21 07:13 Body Mass Index 32.1 Const: General: cooperative and no acute distress Orientation/consciousness: patient oriented x3 Eyes: General: appearance normal, both eyes and all related structures Pupils: Equal, round and reactive pupils present Resp: Effort & Inspection: normal respiratory effort and able to speak in complete sentences Auscultation: clear to auscultation bilaterally Cardio: Rate: regular rate Rhythm: regular rhythm GI: Palpation (GI): Soft to palpation Auscultation: normal bowel sounds Skin: General skin exam: no rashes or lesions noted Neuro: Other: Normal neurological examination General: patient oriented x3 Cranial nerves: Yes Equal, round and reactive pupils present Cognition (Neuro): normal cognition Extrem: General: Yes normal to inspection and Yes no pedal edema Results Labs CBC & Chem 7: 04/19/21 06:28 04/19/21 06:28 Labs: Short CBC 04/18/21 04/19/21 Range/Units 19:09 06:28 WBC 10.3 9.5 (4.8-10.8) X10*3/uL Hgb 14.7 14.0 (12.0-16.0) g/dl Hct 42.5 41.8 (37-47) % Plt Count 295 267 (160-400) X10*3/uL BMP 04/18/21 04/19/21 19:09 06:28 Sodium 141 137 Potassium 4.3 4.4 Chloride 108 106 Carbon Dioxide 23 24 BUN 16 16 Creatinine 0.69 0.69 Calcium 9.7 9.4 Urine 04/18/21 Range/Units 19:09 Urine Color STRAW Urine Appearance CLEAR Urine pH 6.5 (5.0-8.0) Ur Specific [place] <= 1.005 (1.005-1.025) Urine Protein NEG (NEG-TRACE) MG/DL Urine Glucose (UA) NEG (NEG) MG/DL Assessment and Plan (1) Loss of consciousness: Status: Acute Two episodes of syncopal events preceded by a feeling of feeling very hot and diaphoretic nausea and dizziness for about 3-5 minutes followed by loss of consciousness and urinary incontinence and some trembling on 1 occasion. First episode in October 2nd in March. Diagnostic possibility is include cardiac arrhythmia with syncope prolonged cerebral hypoxia and a secondary seizure versus a primary seizure event. Her MRI and CT scan of the brain are normal under neurological examination remains entirely normal Outpatient EEG, 24 hour ambulatory EEG, 7 day cardiac nurse practitioner, outpatient echocardiogram and Cardiology consultation Procedures Date of Service Date of Service: 04/19/21
== END 2021-04-19 17:15 | disposition home or self-care (01) | DRG 53 ==
LOC: HO.ED 20:33 → HO.EDOVER 23:26 → HO.IMC 23:59
PROVIDERS: Physician Assistant; Admitting Provider Internal Medicine; Emergency Provider Emergency Medicine; PCP Hospitalist; Visit Provider Internal Medicine
DX: R56.9 Unspecified convulsions (principal); J44.9 Chronic obstructive pulmonary disease, unspecified; F17.210 Nicotine dependence, cigarettes, uncomplicated; K21.9 Gastro-esophageal reflux disease without esophagitis; Z20.822 Contact with and (suspected) exposure to COVID-19; Z71.6 Tobacco abuse counseling; Z79.899 Other long term (current) drug therapy
CPT/HCPCS: 36415; 70450; 70553; 71045; 80048; 81003; 84484; 85025; 85379; 87635; 93005; 96374; 99285; A9585; J1650; J1953

== ENCOUNTER → 2021-05-05 11:27 | Outpatient (REF) | payer BC, SELFPAY ==
--- NOTE | 2021-05-05 11:30 | HM_ITS ---
Conclusion: 1. Patient was monitored for total period of 6 days and 1 hour 2. Baseline was normal sinus rhythm with average heart rate 86 beats per minute 3. No significant pauses or bradycardia noted 4. Rare ectopy noted 5. No patient reported events MTDD
== END ==
LOC: HO.CARD 11:27
PROVIDERS: Visit Provider Psychiatry & Neurology Neurology
DX: R55 Syncope and collapse (principal)
CPT/HCPCS: 93242

== ENCOUNTER → 2021-05-30 08:18 | Outpatient (REF) | payer BC, SELFPAY ==
--- NOTE | 2021-05-30 08:30 | CA_ITS ---
Transthoracic Echocardiogram Patient (Last, First, Middle): Katty Roque F Gender: Female Date of : 1965 Age: 56 Procedure Date: 05/30/2021 Procedure Type: Transthoracic Echocardiogram Location: OP Height: 160.02 cm Weight: 82.1 kg BSA: 1.85 m2 Heart Rate: bpm BP: 123 / 83 mmHg Game Master: DSG Referring MD: Lucie Butterfield MD Symptoms: R55 SYNCOPE R56.7 SEIZURE Study Quality: Fair ECG Rhythm: Sinus Conclusions: - The left ventricular systolic function is normal. The calculated ejection fraction is 64% by biplane method. - There is mildly increased left ventricular wall thickness. - There is mild mitral valve regurgitation. Findings Left Ventricle Normal left ventricular cavity size. There is mildly increased left ventricular wall thickness. The left ventricular systolic function is normal. The calculated ejection fraction is 64% by biplane method. There is no evidence of regional wall motion abnormalities. Diastolic function is normal for age. Right Ventricle Normal right ventricular cavity size and systolic function. Atria Both atria are normal in size. Aortic Valve There is a normal trileaflet aortic valve. There is no aortic valve stenosis. There is no aortic valve regurgitation. Mitral Valve The mitral valve appears normal. There is mild mitral valve regurgitation. There is no mitral valve stenosis. Pulmonic Valve The pulmonic valve was not well visualized. Tricuspid Valve Normal tricuspid valve structure. There is trace tricuspid valve regurgitation. The pulmonary artery systolic pressure is normal. Great Vessels The aortic annulus, sinuses of valsalva, and asc aorta are normal in size. Venous The inferior vena cava is normal in size and collapses greater than 50% with inspiration. Pericardium/Pleural There is a trivial pericardial effusion. Prior Study Comparison No prior study available for comparison. Measurements 2D Linear Measurements IVSd: 1.13 0.6-0.9/0.6-1.0 cm LVIDd: 4.25 3.9-5.3/4.2-5.9 cm LVIDd Index: 2.30 2.4-3.2/2.2-3.1 cm/m2 LVIDs: 2.56 2.0-3.6 cm LVPWd: 1.16 0.7-1.1 cm LA Diam: 3.80 2.7-3.8/3.0-4.0 cm LAIDs Index: 2.05 1.5-2.3 cm/m2 LV Mass: 211.08 67-162/88-224 g LV Mass Index: 114.10 43-95/49-115 g/m2 LVOT Diam: 2.00 3.0+(-)1.3 cm 2D Systolic Function EF 4C: 63.90 >55% EF 2C: 61.50 >55% EF BiP: 64.40 >55% Mitral Valve MV Pk E: 0.64 MV PK A: 0.51 MV Decel Time: 120.00 E/A: 1.30 E'Lateral: 7.62 E'Medial: 6.42 E/E' Med: 9.90 E/E' Lat: 8.40 PHT: 35.00 MVA PHT: 6.29 Decel Letcher: 5.33 Aortic Valve AoV Pk Rito: 1.29 AoV Pk Grad: 7.00 LVOT LVOT Pk Rito: 0.98 LVOT Mn Rito: 0.64 LVOT VTI: 0.22 LVOT Pk Grad: 4.00 LVOT Mn Grad: 2.00 LVOT Diam: 2.00 LVOT Area: 3.14 Diastolic Function MV Pk E: 0.64 MV Pk A: 0.51 E/A: 1.30 E'Medial: 6.42 E/E' Med: 9.90 E' Laterial: 7.62 E/E' Lat: 8.40 Right Ventricle TAPSE (mm): 2.04 Tricuspid Valve TR Pk Rito: 1.92 TR Pk Grad: 15.00 RA Press: 3.00 RVSP: 18.00 Great Vessels Aorta Ao Asc: 3.80 2.1-3.4 cm Updated in Other Vendor System with Status of Final Brett Lancaster MD electronically signed on 05/31/2021 12:01:37 PM with status of Final
== END ==
LOC: HO.CARD 08:18
PROVIDERS: Visit Provider Psychiatry & Neurology Neurology
DX: R55 Syncope and collapse (principal)
CPT/HCPCS: 93306

== ENCOUNTER 2021-06-12 12:47 | Outpatient (REF) | payer BC, SELFPAY ==
--- NOTE | 2021-06-12 12:53 | EEG_ITS ---
The waking background activity consists of a symmetrical well-defined posterior alpha frequency of 9 to 10 Hertz intermixed anteriorly with low-voltage fast frequencies. Drowsiness is characterized with diffuse theta slowing. During sleep, symmetrical frontal central sleep spindles develop over both hemispheres. Arousals are frequent and unremarkable. The patient remains asymptomatic. No focal, lateralizing, or paroxysmal discharges seen. IMPRESSION: This 24-hour ambulatory EEG is within normal limits. MD SCHUYLER Humphrey/ENA / [id number]
== END 2021-06-12 12:48 | disposition home or self-care (01) ==
LOC: HO.NEURO 12:47
PROVIDERS: Visit Provider Psychiatry & Neurology Neurology
DX: R56.9 Unspecified convulsions (principal)
CPT/HCPCS: 95708

== ENCOUNTER 2023-05-31 00:10 | Emergency (ER) | payer BC, SELFPAY ==
--- NOTE | 2023-05-31 | ECG_ITS ---
Test Reason : left arm pain Blood Pressure : / mmHG Vent. Rate : 088 BPM Atrial Rate : 088 BPM P-R Int : 174 ms QRS Dur : 086 ms QT Int : 386 ms P-R-T Axes : 058 -30 038 degrees QTc Int : 467 ms Normal sinus rhythm Left axis deviation Abnormal ECG When compared with ECG of 18-APR-2021 18:54, No significant change was found Referred By: Generic ED Physician Electronically Signed By:BRANDYN ROSALES
[2023-05-31 00:27] VITALS: BP 136/85; PULSE 91; RESP 16; TEMP 36.4; O2SAT 96; BMI 35.4
== END 2023-05-31 02:40 | disposition left against medical advice (07) ==
PROVIDERS: Emergency Provider Emergency Medicine
DX: M79.602 Pain in left arm (principal); R94.31 Abnormal electrocardiogram [ECG] [EKG]
CPT/HCPCS: 93005; 99283

== ENCOUNTER → 2023-05-31 00:47 | Outpatient (BNV) | payer BC, SELFPAY | PROVIDERS: Emergency Provider Emergency Medicine; Visit Provider Internal Medicine | DX: R94.31 Abnormal electrocardiogram [ECG] [EKG] (principal) | CPT/HCPCS: 93010 ==